=== PATIENT | female | born 1990 | race Native Hawaiian/Other Pacific Islander ===

== ENCOUNTER 2022-08-30 08:34 | Outpatient (CLI) | payer OTHER | END 2022-08-30 22:24 | disposition home or self-care (01) | LOC: US 08:34 | PROVIDERS: ATTEND Nurse Practitioner Family | DX: G62.9 Polyneuropathy, unspecified (principal); I83.893 Varicose veins of bilateral lower extremities with other complications ==

== ENCOUNTER 2022-09-27 09:02 | Outpatient (CLI) | payer OTHER | END 2022-09-27 20:53 | disposition home or self-care (01) | LOC: US 09:02 | PROVIDERS: ATTEND Nurse Practitioner Family | DX: I70.90 Unspecified atherosclerosis (principal) ==